=== PATIENT | female | born 1965 | race African-American/Black ===

== ENCOUNTER 2022-01-07 08:55 | Emergency (ER) | payer OTHER, MEDICARE ==
[2022-01-07] MEDS ORDERED: Ondansetron PF 4 MG/2 ML Vial ONE ×2 (09:11→09:29)
[2022-01-07] MEDS ORDERED: Metoclopramide HCl 10 MG/2 ML VIAL ONE (09:17)
[2022-01-07] MEDS ORDERED: Magnesium 2 GM/50 ML BAG (IN WATER) ONE (09:17)
[2022-01-07 09:25] LABS: Hemoglobin 14.1 g/dL (12.0-16.0); Mean Corpuscular HGB CONC 32.7 g/dL (32.0-36.0); Mean Corpuscular Volume 88.5 fL (78.0-98.0); Mean Platelet Volume 7.8 fL (7.4-10.4); Platelet Count 243 thou/uL (130-400); RBC Distribution Width 12.5 % (11.5-14.5); Red Blood Cell (RBC) Count 4.85 mill/uL (4.20-5.40); White Blood Cell (WBC) Count 6.3 thou/uL (4.8-10.8)
[2022-01-07 09:47] LABS: ALT (SGPT) 12 U/L (8-55); AST (SGOT) 19 U/L (5-34); Albumin 4.3 g/dL (3.5-5.0); Alkaline Phosphatase 101 U/L (40-110); Anion Gap 12 mmol/L (10-20); BUN (Urea Nitrogen) 12 mg/dL (9.8-20.1); Bilirubin, Total 0.4 mg/dL (0.2-1.2); Calc. Creatinine Clearance 0 mL/min (70-130); Calcium 9.4 mg/dL (7.8-10.44); Carbon Dioxide 24 mmol/L (22-29); Chloride 105 mmol/L (98-107); Globulin 4.1 g/dL (2.4-3.5); Glucose 95 mg/dL (70-105); Potassium 3.7 mmol/L (3.5-5.1); Protein, Total 8.4 g/dL (6.0-8.3); Sodium 137 mmol/L (136-145)
[2022-01-07 09:54] LABS: Eosinophils 3 % (0-10); Lymphocytes 53 % (21-51); MDiff Complete? YES; Monocytes 4 % (0-10); Neutrophil 31 % (42-75); Platelet Morphology Comment Appears Adequate; RBC Morphology Normal; Reactive Lymphocytes 9 % (0-10)
== END 2022-01-07 11:41 | disposition home or self-care (01) ==
LOC: ERS 08:55
DX: R51.9 Headache, unspecified (principal); F17.210 Nicotine dependence, cigarettes, uncomplicated; Z79.899 Other long term (current) drug therapy
CPT/HCPCS: 36415; 70450; 80053; 85025; 85652; 86140; 96365; 96375; J2405; J2765; J3475

== ENCOUNTER 2023-05-07 08:17 | Emergency (ER) | payer OTHER ==
[2023-05-07] MEDS ORDERED: Ketorolac Tromethamine 30 MG/ML VIAL ONE (09:00)
[2023-05-07] MEDS ORDERED: Cyclobenzaprine 10 MG TAB ONE (09:00)
== END 2023-05-07 10:05 | disposition home or self-care (01) ==
LOC: ERS 08:17
DX: S13.4XXA Sprain of ligaments of cervical spine, initial encounter (principal); F17.290 Nicotine dependence, other tobacco product, uncomplicated; V49.9XXA Car occupant (driver) (passenger) injured in unspecified traffic accident, initial encounter
CPT/HCPCS: 70450; 71045; 72125; 96372; J1885